=== PATIENT | female | born 1970 | race American Indian/Alaskan Native ===

== ENCOUNTER 2020-07-21 19:54 | Emergency (ER) | payer OTHER ==
[~2020-07-21] VITALS: Ht 165.1 cm; Wt 90.7 kg
[2020-07-21] MEDS ORDERED: CEPHALEXIN500 MG PO (21:45)
== END 2020-07-21 22:31 | disposition home or self-care (01) ==
LOC: ED 19:54
DX: S01.411A Laceration without foreign body of right cheek and temporomandibular area, initial encounter (principal); S01.81XA Laceration without foreign body of other part of head, initial encounter; S60.222A Contusion of left hand, initial encounter; S60.221A Contusion of right hand, initial encounter; Y04.8XXA Assault by other bodily force, initial encounter; F17.200 Nicotine dependence, unspecified, uncomplicated; Z88.8 Allergy status to other drugs, medicaments and biological substances
CPT/HCPCS: 12014; 70450; 73130; 80053; 82150; 82550; 83690; 85025; 86850; 86900; 86901; 99284-25; J1170; J2405

== ENCOUNTER 2020-09-07 16:36 | Emergency (ER) | payer OTHER ==
[~2020-09-07] VITALS: Ht 157.5 cm; Wt 114.0 kg
[~2020-09-07 16:36] MED LIST: CEPHALEXIN500 MG PO
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
--- NOTE | 2020-09-09 13:11 | NUR ---
PCP OFFICE [facility] GALEN AKHTAR REQUESTED NOTES FROM ED VISIT. FAXED FACEHSEET/ED REPORT TO [phone]. FAX CONFIRMATION RECEIVED 09/09/20 130PM. [facility] WILL REACH OUT TO PATIENT TO HELP WITH NEEDS/FOLLOW UP.
== END 2020-09-07 22:45 | disposition short-term general hospital (02) ==
LOC: ED 16:36 → EDBD 16:37 → ED 16:37
DX: S12.601A Unspecified nondisplaced fracture of seventh cervical vertebra, initial encounter for closed fracture (principal); S01.01XA Laceration without foreign body of scalp, initial encounter; F10.129 Alcohol abuse with intoxication, unspecified; Z33.1 Pregnant state, incidental; V29.9XXA Motorcycle rider (driver) (passenger) injured in unspecified traffic accident, initial encounter
CPT/HCPCS: 31500; 36600; 70450; 71045; 71260; 72125; 74177; 80053; 82150; 82550; 83690; 84703; 85025; 86850; 86900; 86901; 90471; 90715; 94002; 99285-25; J0690; J2405; J3010; J7030; J7121

== ENCOUNTER 2021-05-13 11:47 | Emergency (ER) | payer OTHER ==
[~2021-05-13] VITALS: Ht 157.5 cm; Wt 99.8 kg
[2021-05-13] MEDS ORDERED: PENICILLIN V P500 MG PO (12:06)
[2021-05-13] MEDS ORDERED: TRAZODONE HCL50 MG PO (12:07)
== END 2021-05-13 13:18 | disposition left against medical advice (07) ==
LOC: ED 11:47
DX: S16.1XXA Strain of muscle, fascia and tendon at neck level, initial encounter (principal); S00.03XA Contusion of scalp, initial encounter; Y04.8XXA Assault by other bodily force, initial encounter; Z79.899 Other long term (current) drug therapy
CPT/HCPCS: 99284

== ENCOUNTER 2024-01-17 02:39 | Emergency (ER) | payer OTHER ==
[~2024-01-17] VITALS: Ht 157.5 cm; Wt 125.8 kg
[~2024-01-17 02:39] MED LIST changes: +PENICILLIN V P500 MG PO; +TRAZODONE HCL50 MG PO
[2024-01-17] MEDS ORDERED: SODIUM CHLORIDE 0.9% 1,000 ML IV SCH (03:00)
[2024-01-17 03:04] LABS: EOSINOPHILS 1.8 % (0-6); HEMATOCRIT 37.7 % (35.0-50.0); HEMOGLOBIN 12.7 g/dL (12.0-18.0); MCHC 33.6 g/dl (30-36)
[2024-01-17 03:08] LABS: BASOPHILS 0.7 % (0-2); LYMPHOCYTES 33.5 % (24-44); MCH 30.4 (27-36); MCV 90.4 fl (81-99); MONOCYTES 6.8 % (0-12); NEUTROPHILS 57.2 % (39-80); PLATELET COUNT 206 K/uL (140-440); RBC 4.17 M/ul (4.3-5.7); RDW 14.9 (10.5-15.0)
[2024-01-17] MEDS ORDERED: SODIUM CHLORIDE 0.9% 1,000 ML IV PRN (03:15)
[2024-01-17 03:27] LABS: ACETAMINOPHEN 0 ug/mL (10-30); ALBUMIN 2.9 g/dL (3.4-5.0); ALBUMIN/GLOBULIN RATIO 0.91 (1.1-2.4); ALCOHOL, MEDICAL 230 ng/dL (<3); ALKALINE PHOSPHATASE 105 U/L (46-116); ALT (SGPT) 33 U/L (14-59); ANION GAP 13.6 (7-21); AST (SGOT) 23 U/L (15-37); BILIRUBIN, TOTAL 0.3 ng/dL (0.2-1.0); BUN/CREATININE RATIO 13.63 (6.0-28.6); CALCIUM 7.8 mg/dL (8.5-10.1); CARBON DIOXIDE 24 mmol/L (21-32); CHLORIDE 112 mmol/L (98-107); CREATININE, SERUM 0.66 mg/dL (0.55-1.02); GLOMERULAR FILTRATION RATE,EST 104 mL/min (>60); POTASSIUM 3.6 mmol/L (3.5-5.1); PROTEIN, TOTAL 6.1 g/dL (6.4-8.2); SALICYLATE 1.6 mg/dL (2.8-20.0); TSH, 3RD GENERATION 1.919 uIU/mL (0.358-3.740); UREA NITROGEN 9 mg/dL (7-18)
[2024-01-17] MEDS ORDERED: ondansetron HCL 4 MG/2 ML VIAL IV ONE (06:15)
[2024-01-17 06:28] LABS: BILIRUBIN, URINE NEGATIVE (negative); BLOOD/HGB, URINE NEGATIVE (Negative); KETONE, URINE NEGATIVE (Negative); LEUK ESTERASE, URINE NEGATIVE (negative); NITRITE, URINE NEGATIVE (negative); PH, URINE 5.5 (5-7)
[2024-01-17 06:51] LABS: AMPHETAMINES, URINE NEGATIVE (NEGATIVE); BARBITURATES, URINE NEGATIVE (NEGATIVE); BENZODIAZEPINE, URINE NEGATIVE (NEGATIVE); BUPRENORPHINE, URINE NEGATIVE (NEGATIVE); CANNABINOID, URINE NEGATIVE (NEGATIVE); COCAINE, URINE NEGATIVE (NEGATIVE); ECSTASY, URINE POSITIVE (NEGATIVE); FENTANYL, URINE NEGATIVE (NEGATIVE); METHADONE, URINE NEGATIVE (NEGATIVE); OPIATES, URINE NEGATIVE (NEGATIVE); OXYCODONE, URINE NEGATIVE (NEGATIVE); PHENCYCLIDINE, URINE NEGATIVE (NEGATIVE)
[2024-01-17 11:00] VITALS: BP 108/63
--- NOTE | 2024-01-19 12:54 | EKG ---
[facility] [address] [facility] [place], [place] [address] Signed Normal sinus rhythm Low voltage QRS Borderline ECG No previous ECGs available Confirmed by Carmelo Griffin MD ([id number]) on 01/19/2024 12:54:46 PM Electronically Signed By: CARMELO GRIFFIN 01/19/24 1254 PATIENT NAME: JUNE MCKEE Electrocardiogram DATE OF : 68 PHYSICIAN: CARMELO GRIFFIN REPORT #: [id number] REPORT IS CONFIDENTIAL AND NOT TO BE RELEASED WITHOUT AUTHORIZATION
== END 2024-01-17 11:00 | disposition home or self-care (01) ==
LOC: ED 02:39
PROVIDERS: Family Medicine
DX: T43.212A Poisoning by selective serotonin and norepinephrine reuptake inhibitors, intentional self-harm, initial encounter (principal); R45.851 Suicidal ideations; Z88.6 Allergy status to analgesic agent
CPT/HCPCS: 36415; 80053; 80307; 81003; 83735; 84443; 84702; 84703; 85025; 93005; 93010; 94640; 96374; 99284-25; G0480; J2405; J7030

== ENCOUNTER 2024-02-23 16:58 | Emergency (ER) | payer OTHER ==
[~2024-02-23] VITALS: Ht 165.1 cm; Wt 109.0 kg
[2024-02-23 18:49] VITALS: BP 121/90
== END 2024-02-23 18:49 | disposition home or self-care (01) ==
LOC: ED 16:58
DX: F10.129 Alcohol abuse with intoxication, unspecified (principal); Z88.6 Allergy status to analgesic agent
CPT/HCPCS: 99284